=== PATIENT | male | born 1975 ===

== ENCOUNTER 2025-05-31 09:55 | Outpatient (AMB) | payer SELFPAY ==
--- NOTE | 2025-05-31 09:57 | MHC.PC.OV ---
Vital Signs 05/31/25 10:02 Height 5 ft 4.17 in Weight 208 lb 8 oz BMI 35.6 BP 172/108 H Blood Pressure Location Lt brachial Position Sitting Respiration 14 Pulse 110 H Pulse Source Pulse Oximeter Temp 98 F Temp Source Oral Pulse Oximetry (%) 96 Oxygen Delivery Method Room Air Intake Visit Reasons: [facility] [employer] [facility], reschedule Intake Note: New patient visit. Recovery Room Nurse Required: No Allergies No Known Allergies Allergy (Verified 05/31/25 10:00) Tobacco use date assessed: 05/31/25 Dental Screening Dental Screen Date: 05/31/25 Did you have a dental visit in the last 12 months?: Yes Did you have a dental problem in the last 6 months where you did not have access to dental care?: No Was dental information given to patient?: Patient has dentist HPI HPI Comments History of Present Illness Details 49 year old male with a past medical history of elevated blood pressure, white coat htn, anxiety, obesity, family history of heart disease presenting to [facility]. Accompanied by significant other Patient is worried about family history of heart disease. Mom a few years ago on what he says was an enlarged heart-she was told children should be checked. He has no chest pain, dyspnea, le edema. Blood pressure is elevated today x multiple readings but hesitant to start medications. He does not want to pay for health insurance so wants limited testing. He does have a very slight heart murmur on exam. Request alb/cr urine does not want to do lab work at present though he is aware I have ordered this should he change his mind. Never colonoscopy. Again does no want to pay for insurance ROS CONSTITUTIONAL: Denies weight loss, fever and chills. HEENT: Denies changes in vision and hearing. RESPIRATORY: Denies SOB and cough. CV: Denies palpitations and CP GI: Denies abdominal pain, nausea, vomiting and diarrhea. : Denies dysuria and urinary frequency. MSK: Denies new myalgia and joint pain. SKIN: Denies rash and pruritus. NEUROLOGICAL: Denies headache PSYCHIATRIC: Denies recent changes in mood. PHYSICAL EXAM: GENERAL: Alert and oriented x 3. NAD EYES: EOMI. Anicteric. HENT: Moist mucous membranes. No scleral icterus. No cervical lymphadenopathy. LUNGS: Clear to auscultation bilaterally. CARDIOVASCULAR: Regular rate and rhythm. slight murmur. No JVD. ABDOMEN: Soft, non-tender +bs EXTREMITIES: No edema. Non-tender. SKIN: No rashes or lesions. Warm. NEUROLOGIC: No focal neurological deficits. CN II-XII grossly intact PSYCHIATRIC: Anxious. 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 1. Little interest or pleasure in doing things: more than half the days 2. Feeling down, depressed, or hopeless: not at all 3. Trouble falling or staying asleep, or sleeping too much: more than half the days 4. Feeling tired or having little energy: several days 5. Poor appetite or overeating: not at all 6. Feeling bad about yourself - or that you are a failure or have let yourself or your family down: not at all 7. Trouble concentrating on things, such as reading the newspaper or watching television: not at all 8. Moving or speaking so slowly that other people could have noticed. Or the opposite - being so fidgety or restless that you have been moving around a lot more than usual: not at all 9. Thoughts that you would be better off or of hurting yourself in some way: not at all Total score: 5 Source: Developed by Drs. Valentin Caro, Radha Najera, Conrado Jara and colleagues, with an educational devante from [employer]. Thrive Questionnaire I am a: Patient What is your living situation today?: I choose not to answer this question Within the past 12 months, did the food you bought not last and you didn't have the money to get more?: I choose not to answer this question Within the past 12 months, did you worry whether your food would run out before you got money to buy more?: I choose not to answer this question Do you have trouble paying for medicines?: I choose not to answer this question Do you have trouble getting transportation to medical appointments?: I choose not to answer this question Do you have trouble paying your heating and electricity bill?: I choose not to answer this question Do you have trouble taking care of your child, family member or friend?: I choose not to answer this question Do you have trouble with day-to-day activities such as bathing, preparing meals, shopping, managing finances, etc.?: I choose not to answer this question Are you currently unemployed and looking for a job?: I choose not to answer this question Are you interested in more education?: I choose not to answer this question Please select the resources that you would like help with: None Currently or been in a relationship where the following occur: I choose not to answer THRIVE Score: 0 AUDIT C Alcohol Use Questionnaire (AUDIT-C) 1. How often do you have a drink containing alcohol?: Never 3. How often do you have six or more drinks on one occasion?: Never Total Score: 0 MINOR-7 AMB Questionnaire MINOR-7 Feeling nervous, anxious, or on edge: 0 = Not at all Not being able to stop or control worryin = Not at all Worrying too much about different things: 0 = Not at all Trouble relaxin = Not at all Being so restless that it is hard to sit still: 0 = Not at all Becoming easily annoyed or irritable: 0 = Not at all Feeling afraid as if something awful might happen: 0 = Not at all Total MINOR-7 score (0-4 normal; 5-9 mild; 10-14 moderate; 15-21 severe): 0 Source: Developed by Drs. Valentin Caro, Radha Najera, Conrado Jara and colleagues, with an educational devante from [employer]. Physical exam (Primary Care) Vital Signs: Last Vital Signs Temp 98 F 05/31/25 10:02 Pulse 110 H 05/31/25 10:02 Resp 14 05/31/25 10:02 BP 172/108 H 05/31/25 10:02 Pulse Ox 96 05/31/25 10:02 Oxygen Delivery Method Room Air 05/31/25 10:02 BMI result Body Mass Index 35.6 Tobacco/Smoking Status: Tobacco use Status Tobacco use date assessed 05/31/25 05/31/25 10:06 Patient Tobacco Use Status Never used Tobacco 05/31/25 10:06 e-Cigarette/Vaping Use Never Used 05/31/25 10:06 PHQ-9: PHQ-9 Score PHQ-9: Total score 5 05/31/25 10:57 Currently or been in a relationship where the following occur: I choose not to answer Coding Level of Care Code New Pt Level 4 (23462) Diagnoses Encounter to establish care Z76.89 Family history of cardiac disorder Z82.49 Class 2 severe obesity with serious comorbidity and body mass index (BMI) of 35.0 to 35.9 in adult, unspecified obesity type E66.812; Z68.35 Obesity type: unspecified obesity type Obesity classification: adult class 2 (BMI 35 - 39.9) Serious obesity comorbidity presence: with serious comorbidity Body mass index: BMI 35.0-35.9 Heart murmur R01.1 Elevated blood pressure reading R03.0 Assessment & Plan Assessment & Plan (1) Encounter to establish care: Code(s): Z76.89 - Persons encountering health services in other specified circumstances (2) Family history of cardiac disorder: Code(s): Z82.49 - Family history of ischemic heart disease and other diseases of the circulatory system Category: Medical (3) Obesity: Code(s): E66.9 - Obesity, unspecified Category: Medical Qualifiers: Obesity type: unspecified obesity type Obesity classification: adult class 2 (BMI 35 - 39.9) Serious obesity comorbidity presence: with serious comorbidity Body mass index: BMI 35.0-35.9 Qualified Code(s): E66.812 - Obesity, class 2; Z68.35 - Body mass index [BMI] 35.0-35.9, adult (4) Heart murmur: Code(s): R01.1 - Cardiac murmur, unspecified Category: Medical (5) Elevated blood pressure reading: Code(s): R03.0 - Elevated blood-pressure reading, without diagnosis of hypertension Category: Medical Plan 49 year old to establish care Past medical, surgical social family reviewed Patient adamant about repeat blood pressure checks. Declines medication at this time though recommended. Advised to monitor at home, decrease salt, increase activity lose weight Labs ordered. Cologuard ordered Family history of heart disease, murmur-echo ordered. Difficult encouner patient hesitant given lack of insurance coverage and anxiety Orders: Orders Comprehensive Met. Panel 05/31/25 E66.9 - Obesity, unspecified, R03.0 - Elevated blood-pressure reading, without diagnosis of hypertension, R35.89 - Other polyuria, Z12.5 - Encounter for screening for malignant neoplasm of prostate, Z13.220 - Encounter for screening for lipoid disorders, Z13.228 - Encounter for screening for other metabolic disorders, Z82.49 - Family history of ischemic heart disease and other diseases of the circulatory system Hemoglobin A1c 05/31/25 E66.9 - Obesity, unspecified, R03.0 - Elevated blood-pressure reading, without diagnosis of hypertension, R35.89 - Other polyuria, Z12.5 - Encounter for screening for malignant neoplasm of prostate, Z13.220 - Encounter for screening for lipoid disorders, Z13.228 - Encounter for screening for other metabolic disorders, Z82.49 - Family history of ischemic heart disease and other diseases of the circulatory system CA echo transthorac w con 05/31/25 R01.1 - Cardiac murmur, unspecified Complete Blood Count Auto Diff 05/31/25 E66.9 - Obesity, unspecified, R03.0 - Elevated blood-pressure reading, without diagnosis of hypertension, R35.89 - Other polyuria, Z12.5 - Encounter for screening for malignant neoplasm of prostate, Z13.220 - Encounter for screening for lipoid disorders, Z13.228 - Encounter for screening for other metabolic disorders, Z82.49 - Family history of ischemic heart disease and other diseases of the circulatory system Lipid Panel 05/31/25 E66.9 - Obesity, unspecified, R03.0 - Elevated blood-pressure reading, without diagnosis of hypertension, R35.89 - Other polyuria, Z12.5 - Encounter for screening for malignant neoplasm of prostate, Z13.220 - Encounter for screening for lipoid disorders, Z13.228 - Encounter for screening for other metabolic disorders, Z82.49 - Family history of ischemic heart disease and other diseases of the circulatory system TSH reflex Free T4 05/31/25 E66.9 - Obesity, unspecified, R03.0 - Elevated blood-pressure reading, without diagnosis of hypertension, R35.89 - Other polyuria, Z12.5 - Encounter for screening for malignant neoplasm of prostate, Z13.220 - Encounter for screening for lipoid disorders, Z13.228 - Encounter for screening for other metabolic disorders, Z82.49 - Family history of ischemic heart disease and other diseases of the circulatory system Prostate Specific Antigen 05/31/25 E66.9 - Obesity, unspecified, R03.0 - Elevated blood-pressure reading, without diagnosis of hypertension, R35.89 - Other polyuria, Z12.5 - Encounter for screening for malignant neoplasm of prostate, Z13.220 - Encounter for screening for lipoid disorders, Z13.228 - Encounter for screening for other metabolic disorders, Z82.49 - Family history of ischemic heart disease and other diseases of the circulatory system Creatinine Urine 05/31/25 R03.0 - Elevated blood-pressure reading, without diagnosis of hypertension Referrals Cologuard Test Z12.11 - Encounter for screening for malignant neoplasm of colon, Z12.12 - Encounter for screening for malignant neoplasm of rectum
[2025-05-31 10:02] VITALS: BP 172/108; PULSE 110; RESP 14; TEMP 36.6; O2SAT 96; BMI 35.6
== END 2025-05-31 11:58 | disposition home or self-care (01) ==
LOC: HO.HMCFM 09:56
PROVIDERS: PCP Internal Medicine; Visit Provider Internal Medicine
DX: Z76.89 Persons encountering health services in other specified circumstances (principal); Z82.49 Family history of ischemic heart disease and other diseases of the circulatory system; E66.812 Obesity, class 2; Z68.35 Body mass index [BMI] 35.0-35.9, adult; R01.1 Cardiac murmur, unspecified; R03.0 Elevated blood-pressure reading, without diagnosis of hypertension